=== PATIENT | female | born 1980 | race African-American/Black ===

== ENCOUNTER 2017-03-31 20:02 | Emergency (ER) | payer OTHER ==
[2017-03-31 20:09] VITALS: BP 131/91; BMI 25.7
[2017-03-31] MEDS ORDERED: BACTRIM DS TAB PO ONE ×2 (22:44→23:00)
[2017-03-31] MEDS ORDERED: TYLENOL #3 TAB (W/CODEINE) PO ONE ×2 (22:44→23:00)
[2017-03-31] MEDS ORDERED: MOTRIN TAB 600 MG PO ONE ×2 (22:45→23:00)
--- NOTE | 2017-03-31 22:48 | DR.GENAD ---
HPI - PCP Primary Care Physician: nfd - HPI Comment HPI Comment: PAIN INCREASING. BLACK YASH APPLIED TO ABSCESS AT HOME. NO FEVER. - Complaint/Symptoms Chief Complaint Doctors Comments: ABSCESS AND SWLLULITIS RIGHT BUTTOCKS. STARTED FEW DAYS AGO. NO DRAINAGE. NO FEVER. Chief Complaint:: pt states" i can't sit down i have a risen on my rt butt cheek it came up last wednesday gotten bigger and more painful" - Nurses notes reviewed Nurses Notes Review: Yes - Source History Provided: Patient - Mode of Arrival Mode of Arrival: Ambulatory - Timing Onset of Chief Complaint: 03/26/17 Came on: Suddenly - Duration Duration: Constant Duration: Days - Severity Severity: Moderate PMH - PMH Past Medical History: No Past Surgical History: Yes Surgical History: - Family History History of Family Medical Conditions: Yes Family Medical History: Diabetes Mellitus, Hypertension - Social History Does any household member use tobacco: No Alcohol Use: Rarely Do you use any recreational Drugs:: No Lives With: Family Lives Where: Home - infectious screening In the last 2 months have you had wt loss of >10#?: NO Have you had fever, night sweats or hemotysis?: No Have you traveled outside the country in the last 6 months?: No Isolation: Standard ROS - Review of Systems Constitutional: No Symptoms Reported Eyes: No Symptoms Reported ENTM: No Symptoms Reported Respiratoy: No Symptoms Reported Cardiovascular: No Symptoms Reported Gastrointestinal/Abdominal: No Symptoms Reported Genitourinary: No Symptoms Reported Neurological: No Symptoms Reported Musculoskeletal: No Symptoms Reported Integumentary: Other (ABSCESS AND REDNESS RIGHT BUTTOCKS) Hematologic/Lymphatic: No Symptoms Reported Endocrine: No Symptoms Reported All Other Systems: Reviewed and Negative PE - Vital Signs Vitals: Temperature 98.4 F Pulse Rate 92 Respiratory Rate 18 Blood Pressure 131/91 O2 Sat by Pulse Oximetry 100 - General Limitations: No Limitations General Appearance: Alert - Head Head Exam: Normal Inspection - Eyes Eye exam: Normal Appearance - ENT ENT Exam: Normal External Ear Exam TM/Canal Exam: Bilateral Normal Nose Exam: Normal Nose Exam Mouth Exam: Normal Inspection Throat Exam: Normal Inspection - Neck Neck Exam: Trachea Midline - Chest Chest Inspection: Symmetric Chest Wall Rise - Respiratory Respiratory Exam: Normal Lung Sounds Bilat Respiratory Exam: Bilateral Clear to Auscultation - Cardiovascular Cardiovascular Exam: Regular Rate, Normal Rhythm, Normal Heart Sounds - Abdominal Exam Abdominal Exam: Normal Bowel Sounds, Soft, Tenderness - Extremities Extremities Exam: Normal Inspection - Back Back Exam: Normal Inspection - Neurologic Neurological Exam: Alert, Oriented X3 - Psychiatric Psychiatric Exam: Normal Affect, Normal Mood - Skin Skin Exam: Rash, Other (SWELLING PAIN RIGHT BUTTOCKS WITH TENDERNESS.) MDM - Differential Diagnosis Differential Diagnosis: ABSCESS, CELLULITIS Course - Treatment Treatment: SEE ORDERS. I&D DONE IN ED. - Education/Counseling Education/Counseling: Patient, Education Educated On: Treatment, Diagnosis, Needs for Follow Up ROR - Labs Reviewed Laboratory: 03/31/17 23:00 Buttock Gram Stain - Final - Diagnosis Discharge Problem: Abscess Cellulitis Qualifiers: Site of cellulitis: buttock Qualified Code(s): L03.317 - Cellulitis of buttock - Discharge Plan Disposition: 01 HOME, SELF-CARE Condition: Stable Prescriptions: Acetaminophen W/ Codeine [Tylenol/Codeine #3 300-30 mg] 1 tab PO Q4-6H PRN #12 tab PRN Reason: Pain Ibuprofen [MOTRIN TAB 600 MG *] 600 mg PO TID PRN #20 tab PRN Reason: Pain/Inflammation Sulfamethoxazole-Trimethoprim [BACTRIM DS TAB 800/160 MG *] 1 tab PO BID #20 tab - Follow ups/Referrals Follow ups/Referrals: MARIO RUBIN [STAFF PHYSICIAN] - 2 days NFD,None [Primary Care Provider] - 2 days - Instructions Instructions: Cellulitis, [id number], Abscess, [id number] Additional Instructions: return to ed if worse.
== END 2017-03-31 23:20 | disposition home or self-care (01) ==
LOC: ER 20:15
PROC: 0Y9 Anatomical Regions, Lower Extremities, Drainage (ICD-10-PCS; principal; 2017-03-31)
DX: L02.31 Cutaneous abscess of buttock (principal); L03.317 Cellulitis of buttock
CPT/HCPCS: 10060; 87070; 87075; 87077; 87186; 87205; 99282

== ENCOUNTER 2018-01-08 20:47 | Emergency (ER) | payer OTHER ==
[2018-01-08 20:53] VITALS: BP 122/68; BMI 28.0
[2018-01-09] MEDS ORDERED: TYLENOL 500 MG TAB EXTRA STRENGTH PO STA (00:05)
[2018-01-09] MEDS ORDERED: AUGMENTIN 500 MG/125 MG TAB PO ONE ×2 (00:05→00:19)
[2018-01-09] MEDS ORDERED: BENADRYL CAP 50 MG PO ONE (00:05)
--- NOTE | 2018-01-09 00:10 | DR.GENAD ---
HPI - PCP Primary Care Physician: NFD - Complaint/Symptoms Chief Complaint Doctors Comments: Patient is complaining of nasal congestion with intermitted nose bleed with frontal headache for the past 2-3 days getting worst today. States she is 11 weeks but denies cold, cough, fever, chills, chest pain or SOB. She denies dysuria, hematuria, melena, tobacco or alcohol usage. Chief Complaint:: NOSE BLEEDING INTERMITTENTLY SINCE WEDNESDAY; BODY ACHES; CHILLS Self Treatment fo Chief Complaint: NA - Nurses notes reviewed Nurses Notes Review: Yes - Source History Provided: Patient - Mode of Arrival Mode of Arrival: Ambulatory - Timing Onset of Chief Complaint: 01/06/18 Came on: Gradually - Duration Duration: Intermittent How lon Duration: Days - Location Location: nose bleed - Severity Severity: Moderate - Modifying Factors Worsens:: nothing Improves:: nothing PMH - PMH Past Medical History: No Past Surgical History: No Surgical History: - Family History History of Family Medical Conditions: No Family Medical History: Diabetes Mellitus, Hypertension - Social History Alcohol Use: None Do you use any recreational Drugs:: No Lives With: Family Lives Where: Home - infectious screening In the last 2 months have you had wt loss of >10#?: NO Have you had fever, night sweats or hemotysis?: No Have you traveled outside the country in the last 6 months?: No Isolation: Standard ROS - Review of Systems Constitutional: No Symptoms Reported. negative: See HPI, Chills, Diaphoresis, Fever, Malaise, Weakness, Irritable, Fatigue, Loss of Appetite, Other Eyes: No Symptoms Reported ENTM: No Symptoms Reported. negative: See HPI, Ear Pain, Ear Discharge, Pulling on Ears, Hearing Loss, Nose Pain, Nose Discharge, Epistaxis, Nose Congestion, Mouth Pain, Mouth Swelling, Loose Teeth, Drooling, Throat Pain, Throat Swelling, Ear Foreign Body Respiratoy: No Symptoms Reported. negative: See HPI, Productive Cough, Non- Productive Cough, Moist Cough, Dry Cough, Hacking Cough, Barking Cough, Brassy Cough, Orthopnea, Short of Breath, Stridor, Wheezing, Hemoptysis, Other Cardiovascular: No Symptoms Reported Gastrointestinal/Abdominal: No Symptoms Reported. negative: See HPI, Abdominal Pain, Constipation, Diarrhea, Nausea, Vomiting, Food Intolerance, Other Genitourinary: No Symptoms Reported. negative: See HPI, Discharge, Dysuria, Frequency, Hematuria, Pain, Bleeding, Other Neurological: No Symptoms Reported Musculoskeletal: No Symptoms Reported Integumentary: No Symptoms Reported Hematologic/Lymphatic: No Symptoms Reported. negative: See HPI, Anemia, Blood Clots, Easy Bleeding, Easy Bruising, Swollen Glands, Lymphadenopathy, Other Endocrine: No Symptoms Reported Psychiatric: No Symptoms Reported PE - Vital Signs Vitals: Temperature 99.0 F Pulse Rate 96 Respiratory Rate 20 Blood Pressure 122/68 O2 Sat by Pulse Oximetry 20 - General Limitations: No Limitations General Appearance: Alert, In No Apparent Distress - Head Head Exam: Normal Inspection, Atraumatic, Normocephalic - Eyes Eye exam: Normal Appearance, PERRL, EOMI. negative: Scleral Icterus, Conjunctival Injection, Nystagmus, Miosis, Mydrasis, Periorbital Swelling, Periorbital Tenderness, Other - ENT ENT Exam: Normal Exam, Normal Oropharynx, Normal External Ear Exam, Mucous Membranes Moist, TM's Normal Bilaterally External Ear Exam: Normal External Inspection TM/Canal Exam: Bilateral Normal Nose Exam: Normal Nose Exam. negative: Sinus Tenderness, Nasal Deviation (left nostril edematous; erythematous; no active bleeding noted) Mouth Exam: Normal Inspection Throat Exam: Normal Inspection - Neck Neck Exam: Normal Inspection, Full ROM, Trachea Midline - Chest Chest Inspection: Normal Inspection, Symmetric Chest Wall Rise - Respiratory Respiratory Exam: Normal Lung Sounds Bilat Respiratory Exam: Bilateral Clear to Auscultation - Cardiovascular Cardiovascular Exam: Regular Rate, Normal Rhythm, Normal Heart Sounds - Abdominal Exam Abdominal Exam: Normal Inspection, Normal Bowel Sounds, Soft Abdominal Tenderness: negative: RUQ, RLQ, LUQ, LLQ, Epigastrium, Suprapubic, Diffuse, Mild, Moderate, Severe, Other - Extremities Extremities Exam: Normal Inspection, Full ROM, Normal Capillary Refill. negative: Tenderness, Edema, Joint Swelling, Calf Tenderness, Other - Back Back Exam: Normal Inspection, Full ROM - Neurologic Neurological Exam: Alert, Oriented X3, CN II-XII Intact, Normal Gait, Reflexes Normal - Psychiatric Psychiatric Exam: Normal Affect, Normal Mood - Skin Skin Exam: Warm, Dry, Intact, Normal Color. negative: Rash, Cyanosis, Diaphoresis, Erythema, Pallor, Mottled, Other - Diagnosis Discharge Problem: Epistaxis Sinusitis, acute ethmoidal Qualifiers: Recurrence: not specified as recurrent Qualified Code(s): J01.20 - Acute ethmoidal sinusitis, unspecified Qualifiers: Weeks of gestation: 11 weeks Qualified Code(s): Z3A.11 - 11 weeks gestation of - Discharge Plan Disposition: 01 HOME, SELF-CARE Condition: Stable - Follow ups/Referrals Follow ups/Referrals: NFD,None [Primary Care Provider] - 3 days REY LEIVA [STAFF PHYSICIAN] - 3 days - Instructions Instructions: , Sinusitis, Adult, [id number]
[2018-01-09] MEDS ORDERED: TYLENOL 500 MG TAB EXTRA STRENGTH PO ONE (00:19)
[2018-01-09] MEDS ORDERED: BENADRYL CAP/TAB 25 MG PO ONE (00:19)
== END 2018-01-09 00:36 | disposition home or self-care (01) ==
LOC: ER 20:47
DX: R04.0 Epistaxis (principal); J01.20 Acute ethmoidal sinusitis, unspecified; Z3A.11 11 weeks gestation of pregnancy
CPT/HCPCS: 99282; 99283